=== PATIENT | female | born 2000 | race Caucasian/White ===

== ENCOUNTER 2019-07-02 11:40 | Emergency (ER) | payer SELFPAY ==
[2019-07-02 12:15] LABS: Bilirubin Negative (Negative); Blood, Urine Negative (Negative); Clarity Clear (Clear); Glucose, Urine (Dipstick) Negative (Negative); Leukocyte Negative (Negative); Nitrite Negative (Negative); Pregnancy Test - Urine (BHCG) Negative (Negative); Pregu Control Background? CLEAR/WHITE (CLR/WHITE); Pregu Control Bar Appear? YES (CONTROL BAR); Protein, Urine (Dipstick) Negative (Neg-Trace); Specific Gravity 1.025 (1.002-1.036); Urobilinogen 0.2 mg/dL (Less than 2)
[2019-07-02] MEDS ORDERED: Acetaminophen 500 MG TAB ONE (12:25)
[2019-07-02] MEDS ORDERED: Ibuprofen 800 MG TAB ONE (12:25)
== END 2019-07-02 12:43 | disposition home or self-care (01) ==
LOC: MADERS 11:40
DX: M54.5 Low back pain (principal)
CPT/HCPCS: 81003; 81025; 87086; 99283